=== PATIENT | male | born 1965 | race Caucasian/White ===

== ENCOUNTER 2016-12-08 19:33 | Emergency (ER) | payer OTHER ==
[2016-12-08 19:45] VITALS: BP 135/82
--- NOTE | 2016-12-08 20:00 | ED Physician Documentation ---
PD HPI LOWER EXT INJURY - Stated complaint Stated Complaint: LEFT FOOT INJURY - Chief complaint Chief Complaint: Ext Problem - History obtained from History obtained from: Patient - History of Present Illness PD HPI LOW EXT INJURY LOCATION: Left, Foot Type of injury: Fall (jumped out of the bed of a pickup truck and c/o heel pain. No other injuries.) Review of Systems Constitutional: denies: Fever, Chills Throat: denies: Dental pain / toothache, Sore throat GI: denies: Vomiting PD PAST MEDICAL HISTORY - Present Medications Home Medications: Ambulatory Orders Medication Instructions Recorded Confirmed Famotidine [Pepcid] 20 mg PO PRN PRN 12/08/16 12/08/16 - Allergies Allergies/Adverse Reactions: Allergies Allergy/AdvReac Type Severity Reaction Status Date / Time morphine Allergy Hives Verified 12/08/16 19:46 oxycodone Allergy Hives Verified 12/08/16 19:46 Penicillins Allergy Anaphylaxis Verified 12/08/16 19:46 PD ED PE NORMAL - Vitals Vital signs reviewed: Yes - General General: Alert and oriented X 3, No acute distress - HEENT HEENT: PERRL, EOMI - Neck Neck: Supple, no meningeal sign, No bony TTP - Extremities Extremities: No deformity, Other (Quite TTP Left calcaneus without deformity.) - Neuro Neuro: Alert and oriented X 3, Normal speech - Psych Psych: Normal mood, Normal affect Results - Vitals Vitals: Vital Signs - 24 hr 12/08/16 19:43 Temperature 36.6 C Heart Rate 80 Respiratory 18 Rate Blood Pressure 135/82 H O2 Saturation 97 Oxygen O2 Source Room air - Rads (name of study) L calcaneus Radiology: EMP read contemporaneously (normal) Departure - Departure Disposition: 01 Home, Self Care Clinical Impression: Contusion of foot, left Qualifiers: Encounter type: initial encounter Qualified Code(s): S90.32XA - Contusion of left foot, initial encounter Condition: Good Record reviewed to determine appropriate education?: Yes Instructions: ED Contusion Foot Comments: Ice and elevate, Tylenol as needed for pain. Recheck with your physician in 1 week if not better. Your blood pressure was elevated today on check into the emergency department. This does not mean that you have hypertension, it is a common phenomenon to come to the emergency department and have elevated blood pressure. I recommend that she see her primary care physician within the week to have it rechecked when you are feeling better.
--- NOTE | 2016-12-08 21:06 | XRAY Preliminary Report ---
Exam: XR Calcaneus LT IMPRESSION: No evidence for acute fracture. [facility] SITE ID: [id number]
--- NOTE | 2016-12-08 21:08 | XRAY Report ---
EXAM: LEFT ANKLE RADIOGRAPHY EXAM DATE: 12/08/2016 08:41 PM. CLINICAL HISTORY: Compact injury to left ostacalis while getting out of truck. Foot injury. COMPARISON: None. TECHNIQUE: 2 views. FINDINGS: Bones: No evidence for acute fracture. There appears to be a small bone island at the posterior later al aspect of the calcaneus. Joints: No subluxation. Soft Tissues: Normal. No soft tissue swelling. IMPRESSION: No evidence for acute fracture. [facility] Referring Provider Line: [phone] SITE ID: [id number]
== END 2016-12-08 21:54 | disposition home or self-care (01) ==
LOC: ED 19:33
DX: S90.32XA Contusion of left foot, initial encounter (principal); W22.8XXA Striking against or struck by other objects, initial encounter; Y93.39 Activity, other involving climbing, rappelling and jumping off; R03.0 Elevated blood-pressure reading, without diagnosis of hypertension
CPT/HCPCS: 99283